=== PATIENT | male | born 1950 | race Caucasian/White ===

== ENCOUNTER 2019-02-24 05:44 | Day surgery (SDC) | payer MEDICARE ==
[2019-02-24] MEDS ORDERED: Lactated Ringers 1,000 ML IV SCH (06:30)
[2019-02-24] MEDS ORDERED: DIPRIVAN 200 MG/20 ML IV ONE (07:23)
--- NOTE | 2019-02-24 07:58 | OP ---
SURGERY DATE/TIME: 02/24/2019 0730 PREOPERATIVE DIAGNOSIS: Screening exam. POSTOPERATIVE DIAGNOSIS: Normal colon. PROCEDURE: Colonoscopy. SURGEON: Dr. Chapman. ANESTHESIA: MAC. Medications given by anesthesia department. HISTORY: The patient is a 68 year-old white male patient presenting now for screening colonoscopy. He was appraised of the risks of the procedure including the risk of perforation, phlebitis, untoward reaction to medication, bleeding and missed lesions. The patient verbalized his understanding and desired to have the procedure performed. DESCRIPTION OF PROCEDURE: The patient was given the medications by the anesthesia department. He had continuous pulse oximetry, ECG monitoring, intermittent blood pressure monitoring and tidal CO2 monitoring during the examination. He was placed in the left lateral decubitus position. A digital rectal examination was performed and revealed normal anal sphincter tone and no masses. The flexible Olympus pediatric colonoscope was used to intubate the rectum. A view of the colon was developed sequentially to the cecum. Upon insertion and withdrawal, including a retroflex view in the rectum, no mucosal lesions were encountered. The scope was removed from the patient who tolerated the procedure well and was sent back to OP recovery in good condition. The prep was noted to be fair.
[2019-02-24] MEDS ORDERED: SUBLIMAZE 100 MCG/2 ML ONE (07:59)
[2019-02-24 08:46] VITALS: BP 134/79; PULSE 52; O2SAT 99
== END 2019-02-24 08:45 | disposition home or self-care (01) ==
LOC: SDC 05:44
PROVIDERS: ATTEND Family Medicine
DX: Z12.11 Encounter for screening for malignant neoplasm of colon (principal)
CPT/HCPCS: J2704; J3010